=== PATIENT | male | born 2000 | race Caucasian/White ===

== ENCOUNTER 2022-11-20 23:34 | Emergency (ER) | payer MEDICAID ==
[~2022-11-20] VITALS: Ht 172.7 cm; Wt 86.2 kg
[2022-11-20 23:40] VITALS: BP_SYST 123; PULSE 82; RESP 18; TEMP 98.1; O2SAT 98
[2022-11-21] MEDS ORDERED: IPRATROPIUM/ALBUTEROL SULFATE 3 ML AMPUL.NEB (DUONEB) INH ONE (00:45)
[2022-11-21] MEDS ORDERED: DEXAMETHASONE SOD PHOSPHATE 10 MG/ML VIAL IM ONE (00:45)
[2022-11-21] MEDS ORDERED: ALBMDI INH (01:15)
[2022-11-21] MEDS ORDERED: PRED20TA PO (01:15)
[2022-11-21 02:10] VITALS: BP_SYST 127; PULSE 85; RESP 22; TEMP 96.9; O2SAT 96
== END 2022-11-21 02:10 | disposition home or self-care (01) ==
LOC: SED 23:34
DX: J45.901 Unspecified asthma with (acute) exacerbation (principal); R06.02 Shortness of breath; R07.9 Chest pain, unspecified; Z79.899 Other long term (current) drug therapy
CPT/HCPCS: 99283; 71045; 94640; 96372; J1100; 93005